=== PATIENT | male | born 1990 | race African-American/Black ===

== ENCOUNTER 2021-08-15 05:45 | Emergency (ER) | payer MEDICAID ==
[~2021-08-15] VITALS: Ht 180.3 cm; Wt 139.4 kg
[2021-08-15] MEDS ORDERED: TOPUD PO (06:15)
[2021-08-15 06:20] VITALS: BP 126/75
== END 2021-08-15 06:32 | disposition home or self-care (01) ==
LOC: ER 05:45
DX: J02.9 Acute pharyngitis, unspecified (principal)
CPT/HCPCS: 99282